=== PATIENT | female | born 1950 | race Caucasian/White ===

== ENCOUNTER 2017-06-30 11:20 | Observation (INO) | payer OTHER ==
[2017-06-30] MEDS ORDERED: ASPIRIN 81 MG CHEWABLE TABLETS PO ONE (11:44)
[2017-06-30] MEDS ORDERED: ASPIRIN 81 MG CHEWABLE TABLETS ONE (11:58)
[2017-06-30 12:26] LABS: BASOPHIL 0.8 % (0-2.0); EOSINOPHIL 1.5 % (0-4.5); MCH 31.2 pg (25.7-33.7); MCHC 34.4 g/dl (32.0-36.0); MEAN CELL VOLUME 90.7 fl (80-96); MEAN PLT VOLUME 8.5 fl (7.5-11.1); NEUTROPHILS 79.1 % (42.8-82.8); PLATELET COUNT 268 K/MM3 (134-434); RDW 13.6 % (11.6-15.6)
[2017-06-30 12:38] LABS: ACTIVATED PTT 27.8 SECONDS (24.0-38.9)
[2017-06-30 12:41] LABS: ALBUMIN 4.4 g/dl (3.5-5.0); ALK PHOS 57 U/L (32-92); ANION GAP 7 (8-16); BILIRUBIN,TOTAL 0.6 mg/dl (0.2-1.0); CALCIUM 10.3 mg/dl (8.4-10.2); CO2 23 mmol/L (22-28); CREATININE 0.8 mg/dl (0.6-1.3); GLUCOSE,RANDOM 104 mg/dl (74-106); MAGNESIUM 2.1 mg/dL (1.8-2.4); PHOSPHOROUS 2.6 mg/dl (2.5-4.6); SGOT/AST 23 U/L (10-42); SGPT/ALT 23 U/L (10-40); TOT PROT 7.5 g/dl (6.4-8.3)
[2017-06-30 12:43] LABS: INR 1.06 (0.82-1.09); PROTHROMBIN TIME (PATIENT) 11.8 SEC (10.2-13.0)
--- NOTE | 2017-06-30 12:49 | PDOC ---
History of Present Illness - General Chief Complaint: Chest Pain Stated Complaint: CHEST PRESSURE Time Seen by Provider: 06/30/17 11:43 History Source: Patient Exam Limitations: No Limitations - History of Present Illness Initial Comments: 06/30/17 12:50 66-year-old female with history of hypertension, peripheral neuropathy of unclear etiology, presents with chest pressure for 3 days. Patient reports that the chest pressure is initially intermittent but now constant. Unclear if it is exertional. Father had heart disease in the mid 40s. Last stress test about 30 years ago. Denies shortness of breath. No radiation. Not pleuritic. Denies recent illnesess, fevers, chills, cough, vomiting, diarrhea. Past History - Past Medical History Allergies/Adverse Reactions: Allergies Allergy/AdvReac Type Severity Reaction Status Date / Time erythromycin lactobionate AdvReac Mild Nausea Verified 06/30/17 11:48 [From Erythrocin] Home Medications: Ambulatory Orders Ascorbic Acid [Vitamin C -] 500 mg PO HS 06/30/17 Aspirin [Aspirin EC] 81 mg PO HS 06/30/17 Atenolol [Tenormin] 25 mg PO HS 06/30/17 Calcium Carbonate [Tums Ultra] 400 mg PO ONCE 06/30/17 Calcium Carbonate/Vitamin D3 [Calcium 600 + Vit D Tablet] 1 each PO DAILY Cholecalciferol (Vitamin D3) [Vitamin D3 -] 1,000 unit PO HS 06/30/17 Cyclosporine [Restasis] 1 each OP HS 06/30/17 Estradiol [Vagifem] 10 mcg VG DAILY 06/30/17 Fluoxetine HCl [Prozac] 60 mg PO DAILY 06/30/17 Mag Carb/Al Hydrox/Alginic AC [Gaviscon Liquid] 15 - 30 ml PO ONCE 06/30/17 [place]-3/Dha/Epa/Fish Oil [Fish Oil 500 mg Softgel] 1 each PO HS 06/30/17 Spironolactone 100 mg PO BID 06/30/17 Cardiac Disorders: Yes (PVC) COPD: No Other medical history: PERIPHERAL NEUROPATHY - Suicide/Smoking/Psychosocial Hx Smoking History: Never smoked Hx Alcohol Use: Yes Drug/Substance Use Hx: No Substance Use Type: Alcohol Review of Systems - Review of Systems Able to Perform ROS?: Yes Comments:: 06/30/17 13:04 GENERAL/CONSTITUTIONAL: No fever, weakness. HEAD, EYES, EARS, NOSE AND THROAT: No change in vision. No ear pain or discharge. No sore throat. CARDIOVASCULAR: No shortness of breath. + chest pain RESPIRATORY: No cough, wheezing, or hemoptysis. GASTROINTESTINAL: No abdominal pain, nausea, vomiting, diarrhea, or decreased PO intolerance. GENITOURINARY: No dysuria, frequency, or change in urination. MUSCULOSKELETAL: No joint or muscle swelling or pain. No neck or back pain. SKIN: No rash NEUROLOGIC: No headache, vertigo, loss of consciousness, or change in strength/ sensation. ENDOCRINE: No increased thirst. No abnormal weight change. HEMATOLOGIC/LYMPHATIC: No anemia, easy bleeding, or history of blood clots. ALLERGIC/IMMUNOLOGIC: No hives or skin allergy. *Physical Exam - Vital Signs Last Vital Signs Temp Pulse Resp BP Pulse Ox 98.1 F 58 L 15 127/73 100 06/30/17 11:38 06/30/17 12:20 06/30/17 12:20 06/30/17 12:20 06/30/17 12:20 - Physical Exam Comments: 06/30/17 13:05 GENERAL: Awake, alert, and fully oriented, in no acute distress. HEAD: No signs of trauma EYES: PERRLA, EOMI, sclera anicteric, conjunctiva clear ENT: Auricles normal inspection, hearing grossly normal, nares patent NECK: Normal ROM, supple. LUNGS: Breath sounds equal, clear to auscultation bilaterally. No wheezes, and no crackles HEART: Regular rate and rhythm, normal S1 and S2, no murmurs, rubs or gallops ABDOMEN: Soft, nontender, normoactive bowel sounds. No guarding, no rebound. No masses EXTREMITIES: Normal range of motion, no edema. No clubbing or cyanosis. No cords, erythema, or tenderness NEUROLOGICAL: Cranial nerves II through XII grossly intact. Normal speech, normal gait SKIN: Warm, Dry, normal turgor, no rashes or lesions noted. Heart Score/ECG Review - History History: Moderately suspicious - Electrocardiogram EKG: Normal - Age Age: >/= 65 - Risk Factors Risk Factors Heart Score: Yes Hx Hypercholesterolemia, Yes Positive family hx of cardiac disease Based on the list above the patient has:: 1-2 risk factors - Troponin Troponin: </= normal limit - Score Heart Score - Total: 4 #1 ECG reviewed & interpreted by me at: 11:30 06/30/17 12:50 NSR 64, no std/kathie, normal axis, normal intervals, QTC 441 msec ED Treatment Course - LABORATORY CBC & Chemistry Diagram: 06/30/17 12:10 06/30/17 12:10 - ADDITIONAL ORDERS Additional order review: Laboratory Results 06/30/17 06/30/17 12:10 12:10 PT with INR 11.8 INR 1.06 PTT (Actin FS) 27.8 Sodium 133 L Potassium 3.9 Chloride 103 Carbon Dioxide 23 Anion Gap 7 L BUN 17 Creatinine 0.8 Creat Clearance w eGFR > 60 Random Glucose 104 Calcium 10.3 H Phosphorus 2.6 Magnesium 2.1 Total Bilirubin 0.6 AST 23 ALT 23 Alkaline Phosphatase 57 Total Protein 7.5 Albumin 4.4 06/30/17 12:10 RBC 4.41 MCV 90.7 MCHC 34.4 RDW 13.6 MPV 8.5 Neutrophils % 79.1 Lymphocytes % 13.0 Monocytes % 5.6 Eosinophils % 1.5 Basophils % 0.8 - RADIOLOGY Radiology Studies Ordered: Category Date Time Status CHEST X-RAY PORTABLE* [RAD] Stat Radiology 06/30/17 11:44 Completed - Medications Given in the ED: ED Medications Discontinued Medications Generic Name Dose Route Start Last Admin Trade Name Freq PRN Reason Stop Dose Admin Aspirin 162 mg 06/30/17 11:44 06/30/17 12:00 Asa - PO 06/30/17 11:45 162 mg ONCE ONE Administration Medical Decision Making - Medical Decision Making 06/30/17 13:05 Vital Signs Temp Pulse Resp BP Pulse Ox 98.1 F 58 L 15 127/73 100 06/30/17 11:38 06/30/17 12:20 06/30/17 12:20 06/30/17 12:20 06/30/17 12:20 Will need to rule out RI, ACS, gastritis, GERD. Chest xray, labs, troponin. Aspirin. Admit. Dr. Morgan (cardiology) paged and awaiting phone call back. 06/30/17 13:[address] Morgan. Will follow as a tour consultant. 06/30/17 14:08 Chest xray reviewed. No acute findings. CBC, BMP 06/30/17 12:10 06/30/17 12:10 CMP Sodium 133 mmol/L (136-145) L 06/30/17 12:10 Potassium 3.9 mmol/L (3.5-5.1) 06/30/17 12:10 Chloride 103 mmol/L (98-107) 06/30/17 12:10 Carbon Dioxide 23 mmol/L (22-28) 06/30/17 12:10 Anion Gap 7 (8-16) L 06/30/17 12:10 BUN 17 mg/dl (7-18) 06/30/17 12:10 Creatinine 0.8 mg/dl (0.6-1.3) 06/30/17 12:10 Creat Clearance w eGFR > 60 (>60) 06/30/17 12:10 Random Glucose 104 mg/dl (74-106) 06/30/17 12:10 Calcium 10.3 mg/dl (8.4-10.2) H 06/30/17 12:10 Phosphorus 2.6 mg/dl (2.5-4.6) 06/30/17 12:10 Magnesium 2.1 mg/dL (1.8-2.4) 06/30/17 12:10 Total Bilirubin 0.6 mg/dl (0.2-1.0) 06/30/17 12:10 AST 23 U/L (10-42) 06/30/17 12:10 ALT 23 U/L (10-40) 06/30/17 12:10 Alkaline Phosphatase 57 U/L (32-92) 06/30/17 12:10 Troponin I < 0.03 ng/ml (0.03-0.50) L 06/30/17 12:10 Total Protein 7.5 g/dl (6.4-8.3) 06/30/17 12:10 Albumin 4.4 g/dl (3.5-5.0) 06/30/17 12:10 Will admit to [facility] obs to [facility]. *DC/Admit/Observation/Transfer Diagnosis at time of Disposition: Chest pain Qualifiers: Chest pain type: unspecified Qualified Code(s): R07.9 - Chest pain, unspecified - Discharge Dispostion Condition at time of disposition: Good Admit: Yes - Referrals - Patient Instructions - Post Discharge Activity
[2017-06-30 13:54] LABS: URINE APPEARANCE Clear; URINE BILIRUBIN Negative (NEGATIVE); URINE BLOOD Negative (NEGATIVE); URINE GLUCOSE (UA) Negative (NEGATIVE); URINE KETONE Negative (NEGATIVE); URINE NITRITE Negative (NEGATIVE); URINE PROTEIN Negative (NEGATIVE); URINE UROBILINOGEN 0.2 (0.2-1.0)
[2017-06-30 13:59] LABS: URINE COLOR YELLOW; URINE LEUK ESTERASE TRACE (NEGATIVE)
[2017-06-30 14:48] LABS: URINE RBC 0-3 /hpf (0-3)
--- NOTE | 2017-06-30 15:05 | HP ---
CHIEF COMPLAINT: Chest pressure "tightness" for 3 days PCP: HISTORY OF PRESENT ILLNESS: Patient is a 66 year old female with a significant past medical history of hypertension and peripheral neuropathy. She presents to the ER today with complaints of intermittent sternal chest pressure/chest tightness for 3 days. At first the chest tightness/pressure was intermittent, but now it continues and is persistent which prompted to her to go to the ER. Patient reports that her father had heart disease in his 40s. She denies any shortness of breath at rest or with ambulation. Chest pain does not radiate. Denies recent fevers, chills, cough, vomiting, diarrhea or any other discomfort. On exam, patient reports that she has tried multiple anti GERD medications at home with no relief. ER course was notable for: (1) NA 133 (2) Troponin 0.03 (3) Calcium corrected 10.3 (4) ASA 162mg (5) EKG NSR 64 (6) Chest pain/tenderness + on palpation of mid sternal chest area Recent Travel: denies PAST MEDICAL HISTORY: hypertension and peripheral neuropathy. PAST SURGICAL HISTORY: Social History: Smoking: denies Alcohol: denies Drugs: denies Family History: Allergies erythromycin lactobionate [From Erythrocin] Adverse Reaction (Mild, Verified 11/11 11:48) Nausea HOME MEDICATIONS: Home Medications Medication Instructions Recorded Ascorbic Acid [Vitamin C -] 500 mg PO HS 06/30/17 Aspirin [Aspirin EC] 81 mg PO HS 06/30/17 Atenolol [Tenormin] 25 mg PO HS 06/30/17 Calcium Carbonate [Tums Ultra] 400 mg PO ONCE 06/30/17 Calcium Carbonate/Vitamin D3 1 each PO DAILY 06/30/17 [Calcium 600 + Vit D Tablet] Cholecalciferol (Vitamin D3) 1,000 unit PO HS 06/30/17 [Vitamin D3 -] Cyclosporine [Restasis] 1 each OP HS 06/30/17 Estradiol [Vagifem] 10 mcg VG DAILY 06/30/17 Fluoxetine HCl [Prozac] 60 mg PO DAILY 06/30/17 Mag Carb/Al Hydrox/Alginic AC 15 - 30 ml PO ONCE 06/30/17 [Gaviscon Liquid] [place]-3/Dha/Epa/Fish Oil [Fish Oil 1 each PO HS 06/30/17 500 mg Softgel] Spironolactone 100 mg PO BID 06/30/17 REVIEW OF SYSTEMS CONSTITUTIONAL: Absent: fever, chills, diaphoresis, generalized weakness, malaise, loss of appetite, weight change HEENT: Absent: rhinorrhea, nasal congestion, throat pain, throat swelling, difficulty swallowing, mouth swelling, ear pain, eye pain, visual changes CARDIOVASCULAR: Absent: syncope, lightheadedness, peripheral edema RESPIRATORY: Absent: cough, shortness of breath, dyspnea with exertion, orthopnea, wheezing, stridor, hemoptysis GASTROINTESTINAL: Absent: abdominal pain, abdominal distension, nausea, vomiting, diarrhea, constipation, melena, hematochezia GENITOURINARY: Absent: dysuria, frequency, urgency, hesitancy, hematuria, flank pain, genital pain MUSCULOSKELETAL: Absent: myalgia, arthralgia, joint swelling, back pain, neck pain SKIN: Absent: rash, itching, pallor HEMATOLOGIC/IMMUNOLOGIC: Absent: easy bleeding, easy bruising, lymphadenopathy, frequent infections ENDOCRINE: Absent: unexplained weight gain, unexplained weight loss, heat intolerance, cold intolerance NEUROLOGIC: Absent: headache, focal weakness or paresthesias, dizziness, unsteady gait, seizure, mental status changes, bladder or bowel incontinence PSYCHIATRIC: Absent: anxiety, depression, suicidal or homicidal ideation, hallucinations. PHYSICAL EXAMINATION Vital Signs - 24 hr 06/30/17 06/30/17 06/30/17 11:38 12:17 12:20 Temperature 98.1 F Pulse Rate 65 Pulse Rate [ 64 58 L Apical] Respiratory 16 15 15 Rate Blood Pressure 138/59 Blood Pressure 138/59 127/73 [Right Arm] O2 Sat by Pulse 100 100 100 Oximetry (%) GENERAL: Awake, alert, and fully oriented, in no acute distress. HEAD: Normal with no signs of trauma. EYES: Pupils equal, round and reactive to light, extraocular movements intact, sclera anicteric, conjunctiva clear. No lid lag. EARS, NOSE, THROAT: Ears normal, nares patent, oropharynx clear without exudates. Moist mucous membranes. NECK: Normal range of motion, supple without lymphadenopathy, JVD, or masses. LUNGS: Breath sounds equal, clear to auscultation bilaterally. No wheezes, and no crackles. No accessory muscle use. HEART: Regular rate and rhythm ABDOMEN: Soft, nontender, not distended, normoactive bowel sounds, no guarding, no rebound, no masses. No hepatomegaly or splenomegaly. MUSCULOSKELETAL: Normal range of motion at all joints. No bony deformities or tenderness. No CVA tenderness. UPPER EXTREMITIES: 2+ pulses, warm, well-perfused. No cyanosis. No clubbing. No peripheral edema. LOWER EXTREMITIES: 2+ pulses, warm, well-perfused. No calf tenderness. No peripheral edema. NEUROLOGICAL: Normal speech. Normal gait. PSYCHIATRIC: Cooperative. Good eye contact. Appropriate mood and affect. SKIN: Warm, dry, normal turgor, no rashes or lesions noted, normal capillary refill. Laboratory Results - last 24 hr 06/30/17 06/30/17 06/30/17 12:10 12:10 12:10 WBC 8.0 RBC 4.41 Hgb 13.8 Hct 40.0 MCV 90.7 MCH 31.2 MCHC 34.4 RDW 13.6 Plt Count 268 MPV 8.5 Neutrophils % 79.1 Lymphocytes % 13.0 Monocytes % 5.6 Eosinophils % 1.5 Basophils % 0.8 PT with INR 11.8 INR 1.06 PTT (Actin FS) 27.8 Sodium 133 L Potassium 3.9 Chloride 103 Carbon Dioxide 23 Anion Gap 7 L BUN 17 Creatinine 0.8 Creat Clearance w eGFR > 60 Random Glucose 104 Calcium 10.3 H Phosphorus 2.6 Magnesium 2.1 Total Bilirubin 0.6 AST 23 ALT 23 Alkaline Phosphatase 57 Troponin I Total Protein 7.5 Albumin 4.4 Urine Color Urine Appearance Urine pH Ur Specific [place] Urine Protein Urine Glucose (UA) Urine Ketones Urine Blood Urine Nitrite Urine Bilirubin Urine Urobilinogen Ur Leukocyte Esterase Urine RBC Urine WBC Ur Epithelial Cells 06/30/17 06/30/17 12:10 13:35 WBC RBC Hgb Hct MCV MCH MCHC RDW Plt Count MPV Neutrophils % Lymphocytes % Monocytes % Eosinophils % Basophils % PT with INR INR PTT (Actin FS) Sodium Potassium Chloride Carbon Dioxide Anion Gap BUN Creatinine Creat Clearance w eGFR Random Glucose Calcium Phosphorus Magnesium Total Bilirubin AST ALT Alkaline Phosphatase Troponin I < 0.03 L Total Protein Albumin Urine Color Yellow Urine Appearance Clear Urine pH 6.0 Ur Specific [place] 1.015 Urine Protein Negative Urine Glucose (UA) Negative Urine Ketones Negative Urine Blood Negative Urine Nitrite Negative Urine Bilirubin Negative Urine Urobilinogen 0.2 Ur Leukocyte Esterase Trace H Urine RBC 0-3 Urine WBC 3-5 Ur Epithelial Cells 3-5 ASSESSMENT/PLAN: Patient is a 66 year old female with a significant past medical history of hypertension and peripheral neuropathy. She presents to the ER today with complaints of intermittent sternal chest pressure/chest tightness for 3 days. At first the chest tightness/pressure was intermittent, but now it continues and is persistent which prompted to her to go to the ER. Patient reports that her father had heart disease in his 40s. She denies any shortness of breath at rest or with ambulation. Chest pain does not radiate. Denies recent fevers, chills, cough, vomiting, diarrhea or any other discomfort. On exam, patient reports that she has tried multiple anti GERD medications at home with no relief. Cardiology: Chest Pain/Pressure/Rule out ACS vs. gastritis, GERD Chest pain reproducible on palpation Trend troponins ASA 81mg daily (given ASA 162mg in ER) Monitor vitals, labs Echo ordered Lipid panel, TSH, [id number] Cardiology consult Hypertension On Atenolol home dose, continue Monitor BP F.E.N. Fluids: tolerating PO Electrolytes: monitor Nutritio: low sodium Prophylaxis: DVT: <48 hours stay, deferred GI: Protonix 40mg daily Disposition full code. Visit type - Emergency Visit Emergency Visit: Yes ED Registration Date: 06/30/17 Care time: The patient presented to the Emergency Department on the above date and was hospitalized for further evaluation of their emergent condition. - New Patient This patient is new to me today: Yes Date on this admission: 06/30/17 - Critical Care Critical Care patient: No
[2017-06-30 18:16] VITALS: BMI 22.7
[2017-06-30] MEDS: PANTOPRAZOLE 40 MG TABLET (FP) PO SCH (18:47)
[2017-06-30] MEDS: SPIRONOLACTONE 25 MG TABLET (FP) PO SCH (21:32)
[2017-06-30] MEDS ORDERED: ASCORBIC ACID 500 MG TABLET (FP) PO SCH (22:00)
[2017-06-30] MEDS ORDERED: ATENOLOL 25 MG TABLET (FP) PO SCH (22:00)
[2017-06-30] MEDS ORDERED: PATIENT'S OWN MEDICATION (NON-FORMULARY) (Cyclosporine [Restasis] 1 EACH) OP SCH (22:00)
[2017-06-30] MEDS ORDERED: CHOLECALCIFEROL (VITAMIN D3) 1,000 UNIT TABLET (FP) PO SCH (22:00)
[2017-07-01] MEDS ORDERED: ASPIRIN COATED 81 MG TABLET.EC PO SCH (08:00)
[2017-07-01 08:32] LABS: BASOPHIL 0.5 % (0-2.0); EOSINOPHIL 1.9 % (0-4.5); MCH 31.3 pg (25.7-33.7); MCHC 34.1 g/dl (32.0-36.0); MEAN PLT VOLUME 8.8 fl (7.5-11.1); NEUTROPHILS 76.6 % (42.8-82.8); PLATELET COUNT 245 K/MM3 (134-434); RDW 13.5 % (11.6-15.6); WHITE BLOOD COUNT 8.1 K/mm3 (4.0-10.8)
[2017-07-01 08:44] LABS: ALBUMIN 3.9 g/dl (3.5-5.0); ANION GAP 9 (8-16); BILIRUBIN,TOTAL 0.5 mg/dl (0.2-1.0); CALCIUM 9.6 mg/dl (8.4-10.2); CO2 23 mmol/L (22-28); CREATININE 0.9 mg/dl (0.6-1.3); GLUCOSE,RANDOM 121 mg/dl (74-106); MAGNESIUM 1.9 mg/dL (1.8-2.4); PHOSPHOROUS 3.8 mg/dl (2.5-4.6); SGOT/AST 18 U/L (10-42); SGPT/ALT 19 U/L (10-40); TOT PROT 6.7 g/dl (6.4-8.3)
[2017-07-01 09:20] LABS: THYROID STIMULATING HORMONE 4.71 uIU/ml (0.358-3.74)
[2017-07-01] MEDS: SPIRONOLACTONE 25 MG TABLET (FP) PO SCH (09:30)
[2017-07-01] MEDS: PANTOPRAZOLE 40 MG TABLET (FP) PO SCH (09:30)
--- NOTE | 2017-07-01 09:57 | DS ---
Physical Exam: SUBJECTIVE: Patient seen and examined, patient reports feeling well, denies any chest pain, shortness of breath. OBJECTIVE:Patient is a 66 year old female with a significant past medical history of hypertension and peripheral neuropathy. She presents to the ER today with complaints of intermittent sternal chest pressure/chest tightness for 3 days. At first the chest tightness/pressure was intermittent, but now it continues and is persistent which prompted to her to go to the ER. Patient reports that her father had heart disease in his 40s. She denies any shortness of breath at rest or with ambulation. Chest pain does not radiate. Denies recent fevers, chills, cough, vomiting, diarrhea or any other discomfort. On exam, patient reports that she has tried multiple anti GERD medications at home with no relief. ER course was notable for: (1) NA 133 (2) Troponin 0.03 (3) Calcium corrected 10.3 (4) ASA 162mg (5) EKG NSR 64 (6) Chest pain/tenderness + on palpation of mid sternal chest area Vital Signs Period Temp Pulse Resp BP Sys/[place] Pulse Ox Last 24 Hr 97.8 F-98.7 F 56-65 15-18 104-138/48-73 98-100 PHYSICAL EXAM GENERAL: The patient is awake, alert, and fully oriented, in no acute distress. HEAD: Normal with no signs of trauma. EYES: PERRL, extraocular movements intact, sclera anicteric, conjunctiva clear. ENT: Ears normal, nares patent, oropharynx clear without exudates, moist mucous membranes. NECK: Trachea midline, full range of motion, supple. LUNGS: Breath sounds equal, clear to auscultation bilaterally, no wheezes, no crackles, no accessory muscle use. HEART: Regular rate and rhythm, S1, S2 without murmur, rub or gallop. ABDOMEN: Soft, nontender, nondistended, normoactive bowel sounds, no guarding, no rebound, no hepatosplenomegaly, no masses. EXTREMITIES: 2+ pulses, warm, well-perfused, no edema. NEUROLOGICAL: Cranial nerves II through XII grossly intact. Normal speech, gait not observed. PSYCH: Normal mood, normal affect. SKIN: Warm, dry, normal turgor, no rashes or lesions noted. LABS Laboratory Results - last 24 hr 06/30/17 06/30/1706/30/17 12:10 12:10 12:10 WBC 8.0 RBC 4.41 Hgb 13.8 Hct 40.0 MCV 90.7 MCH 31.2 MCHC 34.4 RDW 13.6 Plt Count 268 MPV 8.5 Neutrophils % 79.1 Lymphocytes % 13.0 Monocytes % 5.6 Eosinophils % 1.5 Basophils % 0.8 PT with INR 11.8 INR 1.06 PTT (Actin FS) 27.8 Sodium 133 L Potassium 3.9 Chloride 103 Carbon Dioxide 23 Anion Gap 7 L BUN 17 Creatinine 0.8 Creat Clearance w eGFR > 60 Random Glucose 104 Hemoglobin A1c % Calcium 10.3 H Phosphorus 2.6 Magnesium 2.1 Total Bilirubin 0.6 AST 23 ALT 23 Alkaline Phosphatase 57 Troponin I Total Protein 7.5 Albumin 4.4 TSH Urine Color Urine Appearance Urine pH Ur Specific [place] Urine Protein Urine Glucose (UA) Urine Ketones Urine Blood Urine Nitrite Urine Bilirubin Urine Urobilinogen Ur Leukocyte Esterase Urine RBC Urine WBC Ur Epithelial Cells 06/30/17 06/30/17 06/30/17 12:10 13:35 18:10 WBC RBC Hgb Hct MCV MCH MCHC RDW Plt Count MPV Neutrophils % Lymphocytes % Monocytes % Eosinophils % Basophils % PT with INR INR PTT (Actin FS) Sodium Potassium Chloride Carbon Dioxide Anion Gap BUN Creatinine Creat Clearance w eGFR Random Glucose Hemoglobin A1c % Calcium Phosphorus Magnesium Total Bilirubin AST ALT Alkaline Phosphatase Troponin I < 0.03 L 0.00 Total Protein Albumin TSH Urine Color Yellow Urine Appearance Clear Urine pH 6.0 Ur Specific [place] 1.015 Urine Protein Negative Urine Glucose (UA) Negative Urine Ketones Negative Urine Blood Negative Urine Nitrite Negative Urine Bilirubin Negative Urine Urobilinogen 0.2 Ur Leukocyte Esterase Trace H Urine RBC 0-3 Urine WBC 3-5 Ur Epithelial Cells 3-5 07/01/17 07/01/17 07/01/17 01:00 08:10 08:10 WBC 8.1 RBC 4.17 Hgb 13.1 Hct 38.4 MCV 92.0 MCH 31.3 MCHC 34.1 RDW 13.5 Plt Count 245 MPV 8.8 Neutrophils % 76.6 Lymphocytes % 13.8 Monocytes % 7.2 Eosinophils % 1.9 Basophils % 0.5 PT with INR INR PTT (Actin FS) Sodium 137 Potassium 4.2 Chloride 105 Carbon Dioxide 23 Anion Gap 9 BUN 16 Creatinine 0.9 Creat Clearance w eGFR > 60 Random Glucose 121 H Hemoglobin A1c % Calcium 9.6 Phosphorus 3.8 D Magnesium 1.9 Total Bilirubin 0.5 AST 18 D ALT 19 Alkaline Phosphatase Troponin I < 0.02 Total Protein 6.7 Albumin 3.9 TSH 4.71 H Urine Color Urine Appearance Urine pH Ur Specific [place] Urine Protein Urine Glucose (UA) Urine Ketones Urine Blood Urine Nitrite Urine Bilirubin Urine Urobilinogen Ur Leukocyte Esterase Urine RBC Urine WBC Ur Epithelial Cells 07/01/17 08:10 WBC RBC Hgb Hct MCV MCH MCHC RDW Plt Count MPV Neutrophils % Lymphocytes % Monocytes % Eosinophils % Basophils % PT with INR INR PTT (Actin FS) Sodium Potassium Chloride Carbon Dioxide Anion Gap BUN Creatinine Creat Clearance w eGFR Random Glucose Hemoglobin A1c % 5.4 Calcium Phosphorus Magnesium Total Bilirubin AST ALT Alkaline Phosphatase Troponin I Total Protein Albumin TSH Urine Color Urine Appearance Urine pH Ur Specific [place] Urine Protein Urine Glucose (UA) Urine Ketones Urine Blood Urine Nitrite Urine Bilirubin Urine Urobilinogen Ur Leukocyte Esterase Urine RBC Urine WBC Ur Epithelial Cells Laboratory Tests 06/30/17 06/30/17 07/01/17 12:10 18:10 01:00 Troponin I < 0.03 L 0.00 < 0.02 HOSPITAL COURSE: * Chest Pain/Pressure/Rule out ACS, troponin x 3 wnl, chest pain reproducible on palpation, ASA 81mg daily (given ASA 162mg in ER) no telemetry events, echo lv wnl, moderate mr. dot net developer, Dr Morgan consulted, patient was cleared for discharge will require an outpatient stress test. * b/p remained at goal with home dose atenolol Date of Admission:06/30/17 Date of Discharge: 07/01/17 Minutes to complete discharge: 45 Discharge Summary Reason For Visit: CHEST PAIN Current Active Problems Chest pain (Acute) Condition: Improved - Instructions Diet, Activity, Other Instructions: resume all medications as prescribed please follow up with the dot net developer within 1 week if any new or persistent symptoms develop please return to the emergency department Referrals: David Morgan MD [Staff Physician] - 1 Week Disposition: HOME - Home Medications Comprehensive Discharge Medication List: Ambulatory Orders Ascorbic Acid [Vitamin C -] 500 mg PO HS 06/30/17 Aspirin [Aspirin EC] 81 mg PO HS 06/30/17 Atenolol [Tenormin] 25 mg PO HS 06/30/17 Calcium Carbonate [Tums Ultra] 400 mg PO ONCE 06/30/17 Calcium Carbonate/Vitamin D3 [Calcium 600 + Vit D Tablet] 1 each PO DAILY Cholecalciferol (Vitamin D3) [Vitamin D3 -] 1,000 unit PO HS 06/30/17 Cyclosporine [Restasis] 1 each OP HS 06/30/17 Estradiol [Vagifem] 10 mcg VG DAILY 06/30/17 Fluoxetine HCl [Prozac] 60 mg PO DAILY 06/30/17 Mag Carb/Al Hydrox/Alginic AC [Gaviscon Liquid] 15 - 30 ml PO ONCE 06/30/17 [place]-3/Dha/Epa/Fish Oil [Fish Oil 500 mg Softgel] 1 each PO HS 06/30/17 Spironolactone 100 mg PO BID 06/30/17 This patient is new to me today: Yes Date on this admission: 07/01/17 Emergency Visit: Yes ED Registration Date: 06/30/17 Care time: The patient presented to the Emergency Department on the above date and was hospitalized for further evaluation of their emergent condition. Critical Care patient: No - Discharge Referral Referred to [facility] No
--- NOTE | 2017-07-01 09:58 | CON.CARD ---
Consult Consult Specialty:: Cardiology Referred by:: Hospitalist service Reason for Consultation:: Cardiac evaluation - History of Present Illness Chief Complaint: Chest pain History of Present Illness: Patient is a 66 year old female with underlying history of hypertension and peripheral neuropathy who presents with mid substernal chest discomfort since Friday, but got worse yesterday. She denies shortness of breath or palpitations. She does complain of intermittent skipped beats due to PVCs. She takes Atenolol either 25 mg daily or sometimes 50 mgs. She also takes Aldactone 100 mg BID given by her [employer] to prevent hair loss. She denies paroxysmal nocturnal dyspnea or orthopnea. She denies fever or chills. She denies headache or lightheadedness. She denies any syncopal episodes. She denies nausea, vomiting, diarrhea or abdominal pain. Cardiology consultation was called for further evaluation. - History Source History Provided By: Patient, Medical Record Limitations to Obtaining History: No Limitations - Past Medical History Cardio/Vascular: Yes: HTN, Other (PVCs) Musculoskeletal: Yes: Other (Degenerative joint (knee)) Endocrine: No: Diabetes Mellitus - Past Surgical History Past Surgical History: Yes: None - Alcohol/Substance Use Hx Alcohol Use: Yes - Smoking History Smoking history: Never smoked Home Medications - Allergies Allergies/Adverse Reactions: Allergies Allergy/AdvReac Type Severity Reaction Status Date / Time erythromycin lactobionate AdvReac Mild Nausea Verified 06/30/17 11:48 [From Erythrocin] - Home Medications Home Medications: Ambulatory Orders Ascorbic Acid [Vitamin C -] 500 mg PO HS 06/30/17 Aspirin [Aspirin EC] 81 mg PO HS 06/30/17 Atenolol [Tenormin] 25 mg PO HS 06/30/17 Calcium Carbonate [Tums Ultra] 400 mg PO ONCE 06/30/17 Calcium Carbonate/Vitamin D3 [Calcium 600 + Vit D Tablet] 1 each PO DAILY Cholecalciferol (Vitamin D3) [Vitamin D3 -] 1,000 unit PO HS 06/30/17 Cyclosporine [Restasis] 1 each OP HS 06/30/17 Estradiol [Vagifem] 10 mcg VG DAILY 06/30/17 Fluoxetine HCl [Prozac] 60 mg PO DAILY 06/30/17 Mag Carb/Al Hydrox/Alginic AC [Gaviscon Liquid] 15 - 30 ml PO ONCE 06/30/17 Draper-3/Dha/Epa/Fish Oil [Fish Oil 500 mg Softgel] 1 each PO HS 06/30/17 Spironolactone 100 mg PO BID 06/30/17 Review of Systems - Review of Systems Constitutional: denies: Chills, Fever Cardiovascular: reports: Chest Pain, Palpitations. denies: Shortness of Breath Respiratory: denies: Cough, Hemoptysis, Orthopnea, PND, SOB, SOB on Exertion Gastrointestinal: denies: Abdominal Pain, Constipation, Diarrhea, Melena, Nausea , Rectal Bleeding, Vomiting Genitourinary: denies: Dysuria, Hematuria Musculoskeletal: reports: Joint Pain Neurological: denies: Dizziness, Headache, Seizure, Syncope Vital Signs: Vital Signs Temperature 98.0 F 07/01/17 06:28 Pulse Rate 57 L 07/01/17 06:28 Respiratory Rate 18 07/01/17 06:28 Blood Pressure 107/55 07/01/17 06:28 O2 Sat by Pulse Oximetry (%) 98 07/01/17 06:28 Neck: Yes: Supple Respiratory: Yes: CTA Bilaterally Gastrointestinal: Yes: Normal Bowel Sounds, Soft. No: Tenderness Cardiovascular: Yes: Regular Rate and Rhythm JVD: No Carotid Bruit: No PMI: Non-Displaced Heart Sounds: Yes: S1, S2 Murmur: No: Systolic Murmur, Diastolic Murmur Edema: No - Other Data Labs, Other Data: CBC, BMP 07/01/17 08:10 07/01/17 08:10 INR, PTT INR 1.06 (0.82-1.09) 06/30/17 12:10 Troponin, BNP 06/30/17 06/30/17 07/01/17 12:10 18:10 01:00 Troponin I < 0.03 L 0.00 < 0.02 Normal sinus rhythm with no ST-T abnormality Echo: Pending Imaging - Results Chest X-ray: Report Reviewed (Unremarkable) EKG: Report Reviewed Problem List - Problems (1) HTN (hypertension) Code(s): I10 - ESSENTIAL (PRIMARY) HYPERTENSION Qualifiers: Hypertension type: essential hypertension Qualified Code(s): I10 - Essential (primary) hypertension (2) Peripheral neuropathy Code(s): G62.9 - POLYNEUROPATHY, UNSPECIFIED Qualifiers: Peripheral neuropathy type: polyneuropathy, unspecified Qualified Code(s): G62.9 - Polyneuropathy, unspecified (3) PVC (premature ventricular contraction) Code(s): I49.3 - VENTRICULAR PREMATURE DEPOLARIZATION (4) Chest pain Code(s): R07.9 - CHEST PAIN, UNSPECIFIED Qualifiers: Chest pain type: precordial pain Qualified Code(s): R07.2 - Precordial pain Assessment/Plan 1. Chest pain syndrome, ruled out with negative troponins, atypical, etiology to be determined, ? spasm 2. Hypertension 3. Peripheral neuropathy 4. Intermittent PVCs PLAN: 1. Serial cardiac enzymes noted 2. Transthoracic echocardiography to assess LV/RV and valvular function 3. Continue Atenolol as tolerated 4. Dose of Aldactone is questionable and appears excessive cardiac standpoint 5. Continue with ASA 81 mg once a day 6. Consider low dose Ca channel rene such as Amlodipine 2.5 mg once a day if BP permits 7. Fasting lipid panel and TFT pending 8. Stress testing can be done as outpatient. Patient is to follow up in the office Spent 35 minutes examining and counseling patient Further plans are to follow David Morgan MD
[2017-07-01] MEDS ORDERED: FLUoxetine HCL 20 MG CAPSULE (FP) PO SCH (10:00)
[2017-07-01 10:08] VITALS: PULSE 60
[2017-07-01 14:07] VITALS: BP 119/57; TEMP 97.8
[2017-07-01 14:27] LABS: ALK PHOS 55 U/L (32-92)
[2017-07-01 14:45] LABS: CHOLESTEROL 210 mg/dl
--- NOTE | 2017-07-02 20:20 | EKG ---
Test Reason : Blood Pressure : / mmHG Vent. Rate : 064 BPM Atrial Rate : 064 BPM P-R Int : 134 ms QRS Dur : 090 ms QT Int : 428 ms P-R-T Axes : 020 039 055 degrees QTc Int : 441 ms NORMAL SINUS RHYTHM NORMAL ECG NO PREVIOUS ECGS AVAILABLE Confirmed by DANNA DA SILVA MD ([id number]) on 07/02/2017 8:20:02 PM Referred By: [place] Confirmed By:DANNA DA SILVA MD
== END 2017-07-01 14:40 | disposition home or self-care (01) ==
LOC: FER 11:20 → FM/S 14:37
PROVIDERS: ADMIT Internal Medicine; ATTEND Nurse Practitioner Family
DX: R07.2 Precordial pain (principal); I49.3 Ventricular premature depolarization; I10 Essential (primary) hypertension; G62.9 Polyneuropathy, unspecified; M17.9 Osteoarthritis of knee, unspecified
CPT/HCPCS: 36415; 71010-TC; 80053; 80061; 81003; 81015; 83036; 83721; 83735; 84100; 84436; 84443; 84484; 85025; 85610; 85730; 93005; 93306-TC; 99285-25; G0378

== ENCOUNTER 2020-06-13 10:22 | Emergency (ER) | payer OTHER | END 2020-06-13 10:38 | disposition home or self-care (01) | LOC: JVIRT 10:22 | DX: Z03.818 Encounter for observation for suspected exposure to other biological agents ruled out (principal) | CPT/HCPCS: C9803; Q3014-GT; U0003 ==

== ENCOUNTER 2020-08-10 11:55 | Emergency (ER) | payer OTHER | END 2020-08-10 13:13 | disposition home or self-care (01) | LOC: JVIRT 11:55 | DX: Z11.52 Encounter for screening for COVID-19 (principal) | CPT/HCPCS: Q3014-GT ==

== ENCOUNTER 2024-04-20 20:10 | Emergency (ER) | payer OTHER ==
[2024-04-20 20:27] VITALS: BP 143/65; PULSE 94; RESP 18; TEMP 97.5; BMI 23.1
[2024-04-20] MEDS ORDERED: metroNIDAZOLE 250 MG TABLET ONE (21:06)
[2024-04-20] MEDS: metroNIDAZOLE 250 MG TABLET PO ONE (21:07)
[2024-04-20 21:23] LABS: ALBUMIN 4.6 g/dl (3.4-5.0); BILIRUBIN,TOTAL 0.6 mg/dl (0.2-1); CALCIUM 10.7 mg/dl (8.5-10.1); CREATININE 1.3 mg/dl (0.6-1.3); POTASSIUM 4.2 mmol/L (3.5-5.1); TOT PROT 7.2 g/dl (6.4-8.2)
[2024-04-20 21:24] LABS: HEMATOCRIT 41.2 % (32.4-45.2); HEMOGLOBIN 13.3 G/dL (10.7-15.3); MCH 30.9 pg (25.7-33.7); MCHC 32.4 g/dl (32.0-36.0); MEAN CELL VOLUME 95.6 fl (80-96); MEAN PLT VOLUME 8.5 fl (7.5-11.1); PLATELET COUNT 234.8 10^3/uL (134-434); RBC 4.31 10^6/uL (3.60-5.2); RDW 14.3 % (11.6-15.6); WHITE BLOOD COUNT 14.4 10^3/uL (4.0-10.8)
[2024-04-20] MEDS: SODIUM CHLORIDE 0.9% 500 ML INFUS.BAG IV ONE (21:40)
[2024-04-20 21:48] LABS: PLATELET ESTIMATE ADEQUATE
[2024-04-20] MEDS ORDERED: AMOX TR/POT CLAV 875MG/125MG TABLETS (FP) PO ONE (23:02)
[2024-04-20] MEDS: AMOX TR/POT CLAV 875MG/125MG TABLETS (FP) PO ONE (23:07)
[2024-04-20] MEDS ORDERED: AMOX TR/POT CLAV 875MG/125MG TABLETS (FP) ONE (23:10)
== END 2024-04-20 23:23 | disposition home or self-care (01) ==
LOC: FER 20:10
DX: K52.9 Noninfective gastroenteritis and colitis, unspecified (principal); R10.30 Lower abdominal pain, unspecified
CPT/HCPCS: 36415; 74177-TC; 80053; 81003; 81015; 85025; 87086; 99285-25; Q9967